=== PATIENT | male | born 2000 | race Caucasian/White ===

== ENCOUNTER 2023-08-10 09:14 | Outpatient (CLI) | payer OTHER, SELFPAY ==
--- NOTE | ~2023-08-10 | XR_ITS ---
EXAMINATION: XR wrist RT 2V DATE: 08/10/2023 09:27 INDICATION: Unspecified injury of right wrist. TECHNIQUE: 2 views of right wrist were obtained. COMPARISON: None. FINDINGS: Bone alignment is normal. No fracture. Joint spaces are normal. IMPRESSION: 1. Normal right wrist. Reviewed, dictated and finalized at location A. IMPRESSION: 1. Normal right wrist.
== END 2023-08-10 09:15 ==
PROVIDERS: PCP Family Medicine; Visit Provider Nurse Practitioner Adult Health
DX: S69.91XA Unspecified injury of right wrist, hand and finger(s), initial encounter (principal)
CPT/HCPCS: 73100

== ENCOUNTER 2023-11-23 13:00 | Outpatient (CLI) | payer OTHER, SELFPAY ==
--- NOTE | 2023-11-23 14:30 | NEURO_ITS ---
Impression: # Complains of numbness of hands. Non-diabetic. # Normal Nerve Conduction Study. No Carpal Tunnel Syndrome or ulnar neuropathy. # Normal needle/EMG exam. Nerve Conduction Studies Anti Sensory Summary Table Stim Site NR Peak (ms) P-T Amp (?V) Site1 Site2 Delta-P (ms) Dist (cm) Leland (m/s) Left Median Anti Sensory (2-3nd Digit) Wrist 2.5 93.5 Wrist 2-3nd Digit 2.5 14.0 56 Wrist 2.5 75.4 Wrist 2-3nd Digit 2.5 14.0 56 Right Median Anti Sensory (2-3nd Digit) Wrist 2.5 82.7 Wrist 2-3nd Digit 2.5 14.0 56 Wrist 2.3 87.6 Wrist 2-3nd Digit 2.5 14.0 56 Left Radial Anti Sensory (Base 1st Digit) Wrist 1.8 62.1 Wrist Base 1st Digit 1.8 0.0 Right Radial Anti Sensory (Base 1st Digit) Wrist 2.2 30.5 Wrist Base 1st Digit 2.2 0.0 Left Ulnar Anti Sensory (5th Digit) Wrist 2.5 83.1 Wrist 5th Digit 2.5 14.0 56 Right Ulnar Anti Sensory (5th Digit) Wrist 2.3 79.8 Wrist 5th Digit 2.3 14.0 61 Motor Summary Table Stim Site NR Onset (ms) O-P Amp (mV) Site1 Site2 Delta-0 (ms) Dist (cm) Leland (m/s) Left Median Motor (Abd Poll Brev) Wrist 2.2 5.4 Elbow Wrist 5.0 30.0 60 Elbow 7.2 4.4 Right Median Motor (Abd Poll Brev) Wrist 2.3 9.2 Elbow Wrist 4.9 31.0 63 Elbow 7.2 8.7 Left Ulnar Motor (Abd Dig Minimi) Wrist 2.2 5.6 A Elbow Wrist 5.4 32.0 59 A Elbow 7.6 5.1 Right Ulnar Motor (Abd Dig Minimi) Wrist 2.0 6.8 A Elbow Wrist 5.2 30.0 58 A Elbow 7.2 6.1 F Wave Studies NR F-Lat (ms) L-R F-Lat (ms) Left Median (Mrkrs) (Abd Poll Brev) 25.62 0.56 Right Median (Mrkrs) (Abd Poll Brev) 26.17 0.56 Left Ulnar (Mrkrs) (Abd Dig Min) 27.19 0.42 Right Ulnar (Mrkrs) (Abd Dig Min) 26.77 0.42 EMG Side Muscle Nerve Root Ins Act Fibs Amp Dur Recrt Comment Right 1stDorInt Ulnar C8-T1 Nml Nml Nml Nml Nml Right Ext Indicis Radial (Post Int) C7-8 Nml Nml Nml Nml Nml Right Ext Digitorum Radial (Post Int) C7-8 Nml Nml Nml Nml Nml Right BrachioRad Radial C5-6 Nml Nml Nml Nml Nml Right PronatorTeres Median C6-7 Nml Nml Nml Nml Nml Right Abd Poll Brev Median C8-T1 Nml Nml Nml Nml Nml Right ABD Dig Min Ulnar C8-T1 Nml Nml Nml Nml Nml Left 1stDorInt Ulnar C8-T1 Nml Nml Nml Nml Nml Left Ext Indicis Radial (Post Int) C7-8 Nml Nml Nml Nml Nml Left Ext Digitorum Radial (Post Int) C7-8 Nml Nml Nml Nml Nml Left BrachioRad Radial C5-6 Nml Nml Nml Nml Nml Left PronatorTeres Median C6-7 Nml Nml Nml Nml Nml Left Abd Poll Brev Median C8-T1 Nml Nml Nml Nml Nml Left ABD Dig Min Ulnar C8-T1 Nml Nml Nml Nml Nml MTDD
== END 2023-11-23 13:01 | disposition home or self-care (01) ==
LOC: ANHNEURO 13:03
PROVIDERS: PCP Family Medicine; Visit Provider Nurse Practitioner Adult Health
DX: R20.2 Paresthesia of skin (principal); R20.0 Anesthesia of skin; M25.531 Pain in right wrist; M25.532 Pain in left wrist
CPT/HCPCS: 95886; 95911

== ENCOUNTER 2025-02-15 12:07 | Outpatient (CLI) | payer OTHER, SELFPAY ==
--- NOTE | ~2025-02-15 | XR_ITS ---
XR shoulder RT min 2V 02/15/2025 12:34 INDICATION: Right shoulder pain PROCEDURE: 4 views right shoulder COMPARISON: No prior studies for comparison. FINDINGS: Fracture, dislocation or subluxation is not identified. The soft tissues appear within normal limits. No foreign bodies are identified. IMPRESSION: 1: NO ACUTE BONE OR JOINT ABNORMALITY IDENTIFIED. Reviewed, dictated and finalized at location I. RY [employer]
== END 2025-02-15 12:08 | disposition home or self-care (01) ==
LOC: MICIMG 12:09
PROVIDERS: PCP Family Medicine; Visit Provider Nurse Practitioner Adult Health
DX: S49.91XA Unspecified injury of right shoulder and upper arm, initial encounter (principal); X58.XXXA Exposure to other specified factors, initial encounter
CPT/HCPCS: 73030